=== PATIENT | male | born 1970 | race Caucasian/White ===

== ENCOUNTER 2017-01-02 04:52 | Emergency (ER) | payer OTHER ==
[~2017-01-02] VITALS: Ht 434.3 cm; Wt 117.9 kg
[~2017-01-02 04:52] MED LIST: AMLODIPINE BESY10 MG PO; ANTIBIOTIC; ANXIETY MED PO; ASPIRIN81 M1 PO; CELEXA20 MG PO; CITALOPRAM HYDR20 MG PO; CLINDAMYCIN HC300 MG PO; CYCLOBENZAPRINE10 MG PO; DICLOFENAC SOD75 MG PO; FISH OIL CONC1000 M1 PO; GARLIC100 M1 PO; HYDROCORTISONE30 G4 RC; HYDROXYZINE PAM25 M1 PO; LISINOPRIL5 MG PO; LOVASTATIN40 MG PO; NORVASC10 MG PO; PREDNISONE10 MG PO; REQUIP0.5 MG PO; VISTARIL25 M2 PO
[2017-01-02] MEDS ORDERED: Orphenadrine C100 MG PO (06:01)
[2017-01-02] MEDS ORDERED: KETOROLAC10 MG PO (06:01)
[2017-01-02] MEDS ORDERED: PREDNISONE20 M1 PO (06:21)
== END 2017-01-02 06:26 | disposition home or self-care (01) ==
LOC: ED 04:52
DX: S16.1XXA Strain of muscle, fascia and tendon at neck level, initial encounter (principal); M54.6 Pain in thoracic spine; V89.2XXA Person injured in unspecified motor-vehicle accident, traffic, initial encounter; Y93.89 Activity, other specified; Y92.89 Other specified places as the place of occurrence of the external cause; Y99.8 Other external cause status

== ENCOUNTER 2019-06-12 09:18 | Emergency (ER) | payer OTHER ==
[~2019-06-12] VITALS: Ht 180.3 cm; Wt 127.0 kg
[~2019-06-12 09:18] MED LIST changes: +KETOROLAC10 MG PO; +Orphenadrine C100 MG PO; +PREDNISONE20 M1 PO
[2019-06-12 10:03] LABS: BASO % 0.4 % (0.0-1.0); EOS # 0.3 10*3/uL (0.0-0.4); EOS % 3.1 % (1.0-4.0); HEMATOCRIT 45.9 % (42.0-52.0); LYMPH # 1.9 10*3/uL (1.3-4.4); LYMPH % 19.7 % (27.0-41.0); MEAN CELL VOLUME 90.2 fl (80.0-94.0); MEAN CORPUSCULAR HGB 29.5 pg (27.0-31.0); MEAN CORPUSCULAR HGB CONC 32.7 g/dl (33.0-37.0); MEAN PLATELET VOLUME 9.9 fl (9.6-12.3); MONO # 0.6 10*3/uL (0.1-1.0); MONO % 5.6 % (3.0-9.0); NEUT % 70.8 % (47.0-73.0); PLATELET COUNT AUTOMATED 280 10*3/uL (130-400); RED BLOOD COUNT 5.09 10*6/uL (4.50-5.90); RED CELL DISTRI WIDTH 13.2 % (0-14.5); WHITE BLOOD COUNT 9.8 10*3/uL (4.8-10.8)
[2019-06-12 10:12] LABS: ACT PARTIAL THROMBO TIME 29.1 SECONDS (20.0-32.1); INTERNATIONAL NORM RATIO 0.9 (2.0-3.5)
[2019-06-12 10:19] LABS: ALBUMIN 3.8 gm/dl (3.1-4.5); ALKALINE PHOSPHATASE 126 U/L (45-117); BUN 18 mg/dl (7-24); CHLORIDE 101 mmol/L (98-107); CREATININE 1.24 mg/dL (0.70-1.30); LIPASE 74 U/L (73-393); POTASSIUM 3.4 mmol/L (3.5-5.1); SGOT/AST 26 IU/L (3-35); SGPT/ALT 36 U/L (12-78); SODIUM 137 mmol/L (136-145); TROPONIN I 0.016 ng/ml (<0.045)
[2019-06-12 12:07] LABS: BILIRUBIN NEGATIVE (NEGATIVE); BLOOD NEGATIVE (NEGATIVE); CLARITY CLEAR (CLEAR); COLOR YELLOW (YELLOW); GLUCOSE NEGATIVE (NEGATIVE); KETONE NEGATIVE (NEGATIVE); LEUKO ESTERASE NEGATIVE (NEGATIVE); NITRITE NEGATIVE (NEGATIVE); SPECIFIC GRAVITY 1.025 (1.005-1.030); UROBILINOGEN 0.2 E.U./dl (0.2-1.0)
[2019-06-12 12:26] LABS: MUCOUS TRACE; RBC 0-2 rbc/hpf (0-2)
== END 2019-06-12 15:04 | disposition short-term general hospital (02) ==
LOC: ED 09:18
PROVIDERS: Nurse Practitioner Family
DX: G45.9 Transient cerebral ischemic attack, unspecified (principal); R42 Dizziness and giddiness; R26.89 Other abnormalities of gait and mobility; I10 Essential (primary) hypertension; E78.00 Pure hypercholesterolemia, unspecified

== ENCOUNTER → 2020-10-12 | Outpatient (CLI) | payer OTHER | END | disposition home or self-care (01) | LOC: RAD 11:05 | PROVIDERS: ATTEND Nurse Practitioner Family | DX: R06.02 Shortness of breath (principal); Z95.828 Presence of other vascular implants and grafts ==

== ENCOUNTER 2020-11-20 19:53 | Emergency (ER) | payer OTHER ==
[~2020-11-20] VITALS: Ht 180.3 cm; Wt 122.5 kg
[2020-11-20 20:20] LABS: BASO # 0.1 10*3/uL (0.0-0.1); BASO % 0.5 % (0.0-1.0); EOS # 0.4 10*3/uL (0.0-0.4); EOS % 3.7 % (1.0-4.0); HEMATOCRIT 41.8 % (42.0-52.0); LYMPH # 1.9 10*3/uL (1.3-4.4); LYMPH % 19.5 % (27.0-41.0); MEAN CELL VOLUME 85.7 fl (80.0-94.0); MEAN CORPUSCULAR HGB 27.3 pg (27.0-31.0); MEAN CORPUSCULAR HGB CONC 31.8 g/dl (33.0-37.0); MEAN PLATELET VOLUME 9.4 fl (9.6-12.3); MONO # 0.7 10*3/uL (0.1-1.0); MONO % 7.5 % (3.0-9.0); NEUT # 6.5 10*3/uL (2.3-7.9); NEUT % 68.4 % (47.0-73.0); PLATELET COUNT AUTOMATED 339 10*3/uL (130-400); RED BLOOD COUNT 4.88 10*6/uL (4.50-5.90); RED CELL DISTRI WIDTH 13.5 % (0-14.5); WHITE BLOOD COUNT 9.5 10*3/uL (4.8-10.8)
[2020-11-20 20:44] LABS: ALBUMIN 3.4 gm/dl (3.1-4.5); CREATININE 1.62 mg/dL (0.70-1.30); POTASSIUM 3.5 mmol/L (3.5-5.1); TOTAL PROTEIN 7.8 gm/dL (6.4-8.2)
[2020-11-20] MEDS ORDERED: PREDNISONE20 M1 PO (20:51)
== END 2020-11-20 21:10 | disposition home or self-care (01) ==
LOC: ED 19:53
PROVIDERS: Internal Medicine
DX: R04.0 Epistaxis (principal); J40 Bronchitis, not specified as acute or chronic; I10 Essential (primary) hypertension; F17.200 Nicotine dependence, unspecified, uncomplicated; Z86.16 Personal history of COVID-19; Z79.899 Other long term (current) drug therapy; Z98.890 Other specified postprocedural states

== ENCOUNTER 2020-12-12 11:31 | Inpatient (IN) | payer OTHER ==
[2020-12-12] VITALS (9 sets, daily range): BP systolic 126–168; BP diastolic 97–177
[~2020-12-12] VITALS: Ht 180.3 cm; Wt 127.7 kg
[2020-12-12 11:58] LABS: BASO % 0.4 % (0.0-1.0); EOS # 0.3 10*3/uL (0.0-0.4); EOS % 2.4 % (1.0-4.0); HEMATOCRIT 41.7 % (42.0-52.0); LYMPH # 1.3 10*3/uL (1.3-4.4); LYMPH % 12.2 % (27.0-41.0); MEAN CELL VOLUME 86.5 fl (80.0-94.0); MEAN CORPUSCULAR HGB 27.2 pg (27.0-31.0); MEAN CORPUSCULAR HGB CONC 31.4 g/dl (33.0-37.0); MEAN PLATELET VOLUME 9.5 fl (9.6-12.3); MONO # 0.8 10*3/uL (0.1-1.0); MONO % 7.7 % (3.0-9.0); NEUT # 8.3 10*3/uL (2.3-7.9); NEUT % 76.7 % (47.0-73.0); PLATELET COUNT AUTOMATED 286 10*3/uL (130-400); RED BLOOD COUNT 4.82 10*6/uL (4.50-5.90); RED CELL DISTRI WIDTH 15.2 % (0-14.5); WHITE BLOOD COUNT 10.8 10*3/uL (4.8-10.8)
[2020-12-12 12:17] LABS: ALBUMIN 2.9 gm/dl (3.1-4.5); CREATININE 1.51 mg/dL (0.70-1.30); POTASSIUM 3.4 mmol/L (3.5-5.1); TOTAL PROTEIN 6.8 gm/dL (6.4-8.2)
[2020-12-12 12:34] LABS: TROPONIN I 0.141 ng/ml (<0.045)
[2020-12-12 13:10] LABS: ACT PARTIAL THROMBO TIME 28.1 SECONDS (20.0-32.1); INTERNATIONAL NORM RATIO 1.2 (2.0-3.5)
[2020-12-12] MEDS ORDERED: FLUTICASONE-SA1 EAC4 INH (14:29)
[2020-12-12] MEDS ORDERED: PROVENTIL HFA6.7 GM INH (14:29)
[2020-12-12 16:30] LABS: BILIRUBIN Negative (Negative); BLOOD Trace-Lysed (Negative); CLARITY Clear (Clear); COLOR Yellow (Yellow); GLUCOSE Negative (Negative); KETONE Trace (Negative); LEUKO ESTERASE Negative (Negative); NITRITE Negative (Negative); PH 5.5 (4.5-8.0); SPECIFIC GRAVITY 1.015 (1.001-1.030)
[2020-12-12 16:37] LABS: COARSE GRANULAR CAST 21-30; RBC 0-2 rbc/hpf (0-2)
[2020-12-12 16:38] LABS: BACTERIA 1+
[2020-12-13] VITALS: BP 139/110
[2020-12-13 07:59] LABS: BASO # 0.1 10*3/uL (0.0-0.1); BASO % 0.7 % (0.0-1.0); EOS # 0.4 10*3/uL (0.0-0.4); EOS % 5.3 % (1.0-4.0); HEMATOCRIT 39.1 % (42.0-52.0); LYMPH # 1.6 10*3/uL (1.3-4.4); LYMPH % 19.8 % (27.0-41.0); MEAN CELL VOLUME 86.1 fl (80.0-94.0); MEAN CORPUSCULAR HGB 27.5 pg (27.0-31.0); MEAN PLATELET VOLUME 9.7 fl (9.6-12.3); MONO # 0.7 10*3/uL (0.1-1.0); NEUT # 5.4 10*3/uL (2.3-7.9); NEUT % 65.6 % (47.0-73.0); PLATELET COUNT AUTOMATED 228 10*3/uL (130-400); RED BLOOD COUNT 4.54 10*6/uL (4.50-5.90); RED CELL DISTRI WIDTH 15.5 % (0-14.5); WHITE BLOOD COUNT 8.3 10*3/uL (4.8-10.8)
[2020-12-13 08:00] VITALS: BP 124/90
[2020-12-13 08:14] LABS: ALBUMIN 2.7 gm/dl (3.1-4.5); ALKALINE PHOSPHATASE 108 U/L (45-117); BUN 20 mg/dl (7-24); CHLORIDE 101 mmol/L (98-107); CHOLESTEROL 128 mg/dL (<200); CREATININE 1.25 mg/dL (0.70-1.30); LDL CHOLESTEROL 83 mg/dL (9-159); POTASSIUM 3.1 mmol/L (3.5-5.1); SGOT/AST 43 IU/L (3-35); SGPT/ALT 78 U/L (12-78); SODIUM 136 mmol/L (136-145); TOTAL PROTEIN 6.1 gm/dL (6.4-8.2); TRIGLYCERIDES 81 mg/dl (<150)
[2020-12-13 08:15] LABS: FREE T4 1.49 ng/dl (0.76-1.46)
[2020-12-13 08:20] LABS: THYROID STIM HORMONE (HS) 0.959 uIU/ml (0.358-4.75)
[2020-12-13 12:00] VITALS: BP 97/61
[2020-12-13 16:00] VITALS: BP 109/64
[2020-12-13 20:00] VITALS: BP 88/75
[2020-12-13 20:47] VITALS: BP 94/56
[2020-12-14] VITALS: BP 94/77
[2020-12-14 06:02] LABS: BUN 21 mg/dl (7-24); CHLORIDE 101 mmol/L (98-107); CREATININE 1.36 mg/dL (0.70-1.30); POTASSIUM 3.2 mmol/L (3.5-5.1); SODIUM 137 mmol/L (136-145)
[2020-12-14 08:00] VITALS: BP 119/93
[2020-12-14 12:00] VITALS: BP 111/79
[2020-12-14 16:00] VITALS: BP 122/89
[2020-12-14 20:00] VITALS: BP 120/86
[2020-12-15] VITALS: BP 126/90
[2020-12-15 06:40] LABS: CHLORIDE 102 mmol/L (98-107); SODIUM 139 mmol/L (136-145)
[2020-12-15 06:54] LABS: ALBUMIN 2.8 gm/dl (3.1-4.5); ALKALINE PHOSPHATASE 96 U/L (45-117); BUN 19 mg/dl (7-24); CREATININE 1.28 mg/dL (0.70-1.30); SGOT/AST 25 IU/L (3-35); SGPT/ALT 60 U/L (12-78); TOTAL PROTEIN 6.4 gm/dL (6.4-8.2)
[2020-12-15 08:00] VITALS: BP 121/95
[2020-12-15 12:00] VITALS: BP 107/73
[2020-12-15] MEDS ORDERED: ELIQUIS5 M1 PO (13:05)
[2020-12-15] MEDS ORDERED: LISINOPRIL10 M1 PO (13:05)
[2020-12-15] MEDS ORDERED: METOPROLOL SUCC25 M2 PO (13:05)
[2020-12-15] MEDS ORDERED: LASIX40 MG PO (13:05)
[2020-12-15] MEDS ORDERED: ASPIRIN ADULT L81 M2 PO (13:05)
[2020-12-15] MEDS ORDERED: POTASSIUM CHLO20 ME3 PO (13:05)
== END 2020-12-15 13:35 | disposition home or self-care (01) | DRG 194 ==
LOC: ED 11:31 → 5E 13:07 → EDHOLD 13:07 → 5E 13:28
PROVIDERS: Internal Medicine; Nurse Practitioner Family; Student in an Organized Health Care Education/Training Program; ADMIT Student in an Organized Health Care Education/Training Program; ATTEND Student in an Organized Health Care Education/Training Program
DX: I11.0 Hypertensive heart disease with heart failure (principal); I50.21 Acute systolic (congestive) heart failure; N17.0 Acute kidney failure with tubular necrosis; R65.10 Systemic inflammatory response syndrome (SIRS) of non-infectious origin without acute organ dysfunction; I48.0 Paroxysmal atrial fibrillation; E44.0 Moderate protein-calorie malnutrition; F41.1 Generalized anxiety disorder; D64.9 Anemia, unspecified; R07.89 Other chest pain; E87.6 Hypokalemia; R73.9 Hyperglycemia, unspecified; R74.01 Elevation of levels of liver transaminase levels; I47.2 Ventricular tachycardia; I77.811 Abdominal aortic ectasia; I48.92 Unspecified atrial flutter; I42.9 Cardiomyopathy, unspecified; E66.9 Obesity, unspecified; E78.2 Mixed hyperlipidemia; T50.2X5A Adverse effect of carbonic-anhydrase inhibitors, benzothiadiazides and other diuretics, initial encounter; Z68.37 Body mass index [BMI] 37.0-37.9, adult; Z86.73 Personal history of transient ischemic attack (TIA), and cerebral infarction without residual deficits; Z80.1 Family history of malignant neoplasm of trachea, bronchus and lung; Z80.8 Family history of malignant neoplasm of other organs or systems; Y92.89 Other specified places as the place of occurrence of the external cause; Z95.2 Presence of prosthetic heart valve; Z87.891 Personal history of nicotine dependence; I24.8 Other forms of acute ischemic heart disease

== ENCOUNTER → 2020-12-17 | Outpatient (CLI) | payer OTHER ==
[~2020-12-17] MED LIST changes: +ASPIRIN ADULT L81 M2 PO; +ELIQUIS5 M1 PO; +FLUTICASONE-SA1 EAC4 INH; +LASIX40 MG PO; +LISINOPRIL10 M1 PO; +METOPROLOL SUCC25 M2 PO; +POTASSIUM CHLO20 ME3 PO; +PROVENTIL HFA6.7 GM INH
== END | disposition home or self-care (01) ==
LOC: COVID19 10:33
PROVIDERS: ATTEND Internal Medicine
DX: Z20.822 Contact with and (suspected) exposure to COVID-19 (principal); R00.0 Tachycardia, unspecified; R65.10 Systemic inflammatory response syndrome (SIRS) of non-infectious origin without acute organ dysfunction

== ENCOUNTER → 2021-02-22 | Outpatient (CLI) | payer OTHER ==
[2021-02-22 10:08] LABS: BUN 25 mg/dl (7-24); CHLORIDE 98 mmol/L (98-107); CREATININE 1.25 mg/dL (0.70-1.30); POTASSIUM 4.3 mmol/L (3.5-5.1); SODIUM 132 mmol/L (136-145)
== END | disposition home or self-care (01) ==
LOC: LAB 09:39
PROVIDERS: ATTEND Internal Medicine
DX: I50.42 Chronic combined systolic (congestive) and diastolic (congestive) heart failure (principal)

== ENCOUNTER → 2021-03-16 | Outpatient (CLI) | payer OTHER | END | disposition home or self-care (01) | LOC: LAB 10:28 | PROVIDERS: ATTEND Internal Medicine | DX: I25.10 Atherosclerotic heart disease of native coronary artery without angina pectoris (principal) ==

== ENCOUNTER → 2021-03-21 | Outpatient (CLI) | payer OTHER ==
[2021-03-21 11:07] LABS: BUN 26 mg/dl (7-24); CHLORIDE 102 mmol/L (98-107); CREATININE 1.28 mg/dL (0.70-1.30); POTASSIUM 4.2 mmol/L (3.5-5.1); SODIUM 135 mmol/L (136-145)
== END | disposition home or self-care (01) ==
LOC: LAB 10:18
PROVIDERS: ATTEND Internal Medicine
DX: I10 Essential (primary) hypertension (principal)

== ENCOUNTER → 2021-06-06 | Outpatient (CLI) | payer OTHER ==
[2021-06-06 13:29] LABS: BUN 25 mg/dl (7-24); CHLORIDE 101 mmol/L (98-107); CREATININE 1.19 mg/dL (0.70-1.30); POTASSIUM 4.8 mmol/L (3.5-5.1); SODIUM 136 mmol/L (136-145)
== END | disposition home or self-care (01) ==
LOC: CARD 11:30 → LAB 11:33
PROVIDERS: ATTEND Internal Medicine
DX: I11.9 Hypertensive heart disease without heart failure (principal); I42.9 Cardiomyopathy, unspecified

== ENCOUNTER → 2021-12-16 | Outpatient (CLI) | payer OTHER ==
[2021-12-16 13:09] LABS: CREATININE 1.54 mg/dL (0.70-1.30); POTASSIUM 4.2 mmol/L (3.5-5.1)
== END | disposition home or self-care (01) ==
LOC: LAB 12:37
PROVIDERS: ATTEND Internal Medicine
DX: I10 Essential (primary) hypertension (principal)

== ENCOUNTER → 2022-01-25 | Outpatient (CLI) | payer OTHER ==
[2022-01-25 12:06] LABS: BUN 28 mg/dl (7-24); CHLORIDE 102 mmol/L (98-107); CREATININE 1.33 mg/dL (0.70-1.30); POTASSIUM 4.2 mmol/L (3.5-5.1); SODIUM 132 mmol/L (136-145)
== END ==
LOC: LAB 11:13
PROVIDERS: ATTEND Internal Medicine
DX: I10 Essential (primary) hypertension (principal)

== ENCOUNTER → 2024-02-14 | Outpatient (CLI) | payer OTHER ==
[2024-02-14 10:52] LABS: BUN 22 mg/dl (9-23); CHLORIDE 103 mmol/L (98-107); POTASSIUM 4.8 mmol/L (3.4-5.1)
== END | disposition home or self-care (01) ==
LOC: LAB 09:49
PROVIDERS: ATTEND Internal Medicine
DX: I10 Essential (primary) hypertension (principal); I42.9 Cardiomyopathy, unspecified; I48.0 Paroxysmal atrial fibrillation

== ENCOUNTER 2024-04-02 11:26 | Emergency (ER) | payer OTHER ==
[~2024-04-02] VITALS: Ht 180.3 cm; Wt 127.0 kg
[2024-04-02] MEDS ORDERED: SODIUM CHLORIDE 0.9% 1,000 ML IV ONE (12:00)
[2024-04-02 12:20] LABS: BASO % 0.3 % (0.0-1.0); EOS # 0.3 10*3/uL (0.0-0.4); EOS % 3.8 % (1.0-4.0); HEMATOCRIT 46.8 % (42.0-52.0); LYMPH # 1.2 10*3/uL (1.3-4.4); LYMPH % 14.2 % (27.0-41.0); MEAN CELL VOLUME 88.6 fl (80.0-94.0); MEAN CORPUSCULAR HGB 28.6 pg (27.0-31.0); MEAN CORPUSCULAR HGB CONC 32.3 g/dl (33.0-37.0); MEAN PLATELET VOLUME 9.5 fl (9.6-12.3); MONO # 0.7 10*3/uL (0.1-1.0); MONO % 7.4 % (3.0-9.0); NEUT # 6.5 10*3/uL (2.3-7.9); PLATELET COUNT AUTOMATED 266 10*3/uL (130-400); RED BLOOD COUNT 5.28 10*6/uL (4.50-5.90); WHITE BLOOD COUNT 8.7 10*3/uL (4.8-10.8)
[2024-04-02] MEDS ORDERED: TOPROL XL50 M1 PO (12:21)
[2024-04-02] MEDS ORDERED: ENTRESTO 97 MG1 EACH PO ×2 (12:22→12:28)
[2024-04-02] MEDS ORDERED: EPLERENONE25 MG PO (12:23)
[2024-04-02] MEDS ORDERED: JARDIANCE10 MG PO (12:24)
[2024-04-02] MEDS ORDERED: LASIX20 MG PO (12:24)
[2024-04-02 12:44] LABS: BUN 14 mg/dl (9-23); CHLORIDE 104 mmol/L (98-107); POTASSIUM 3.8 mmol/L (3.4-5.1)
[2024-04-02] MEDS ORDERED: Albuterol Sulf/Ipratropium 3 ML VIAL NEB ONE (13:35)
[2024-04-02] MEDS ORDERED: methylPREDNISolone sod succ 125 MG VIAL IV ONE (13:35)
== END 2024-04-02 15:24 | disposition home or self-care (01) ==
LOC: ED 11:26
PROVIDERS: Internal Medicine
DX: R06.02 Shortness of breath (principal); Z20.822 Contact with and (suspected) exposure to COVID-19; R42 Dizziness and giddiness; F41.9 Anxiety disorder, unspecified; I10 Essential (primary) hypertension; E78.00 Pure hypercholesterolemia, unspecified; F17.290 Nicotine dependence, other tobacco product, uncomplicated; Z98.890 Other specified postprocedural states; Z53.29 Procedure and treatment not carried out because of patient's decision for other reasons

== ENCOUNTER → 2024-05-20 | Outpatient (CLI) | payer OTHER ==
[~2024-05-20] MED LIST changes: +ENTRESTO 97 MG1 EACH PO; +EPLERENONE25 MG PO; +JARDIANCE10 MG PO; +LASIX20 MG PO; +TOPROL XL50 M1 PO
== END | disposition home or self-care (01) ==
LOC: CARD 12:43
PROVIDERS: ATTEND Internal Medicine
DX: I35.8 Other nonrheumatic aortic valve disorders (principal); I50.42 Chronic combined systolic (congestive) and diastolic (congestive) heart failure

== ENCOUNTER 2024-12-22 12:35 | Emergency (ER) | payer OTHER ==
[~2024-12-22] VITALS: Ht 180.3 cm; Wt 124.7 kg
[2024-12-22 13:22] LABS: BASO % 0.4 % (0.0-1.0); EOS # 0.2 10*3/uL (0.0-0.4); EOS % 1.9 % (1.0-4.0); MEAN CELL VOLUME 88.4 fl (80.0-94.0); MEAN CORPUSCULAR HGB 28.7 pg (27.0-31.0); MEAN CORPUSCULAR HGB CONC 32.5 g/dl (33.0-37.0); MEAN PLATELET VOLUME 9.2 fl (9.6-12.3); MONO # 0.5 10*3/uL (0.1-1.0); MONO % 5.4 % (3.0-9.0); NEUT # 8.1 10*3/uL (2.3-7.9); NEUT % 82.7 % (47.0-73.0); PLATELET COUNT AUTOMATED 326 10*3/uL (130-400); RED BLOOD COUNT 5.43 10*6/uL (4.50-5.90); RED CELL DISTRI WIDTH 13.4 % (0-14.5); WHITE BLOOD COUNT 9.8 10*3/uL (4.8-10.8)
[2024-12-22 13:46] LABS: BUN 23 mg/dl (9-23); CHLORIDE 96 mmol/L (98-107); POTASSIUM 4.4 mmol/L (3.4-5.1)
[2024-12-22] MEDS ORDERED: VIBRAMYCIN100 MG PO (13:54)
[2024-12-22] MEDS ORDERED: Doxycycline Hyclate 100 MG CAPSULE PO ONE (13:55)
== END 2024-12-22 14:11 | disposition home or self-care (01) ==
LOC: ED 12:35
PROVIDERS: Nurse Practitioner Family
DX: A69.20 Lyme disease, unspecified (principal); I10 Essential (primary) hypertension; E78.00 Pure hypercholesterolemia, unspecified; F41.9 Anxiety disorder, unspecified; F17.200 Nicotine dependence, unspecified, uncomplicated; Z79.82 Long term (current) use of aspirin; Z79.899 Other long term (current) drug therapy; Z98.890 Other specified postprocedural states